=== PATIENT | female | born 1990 | race Hispanic/Latino ===

== ENCOUNTER 2017-03-01 15:33 | Emergency (ER) | payer BC ==
--- NOTE | 2017-03-01 16:58 | RAD ---
LEFT ANKLE FOUR VIEWS: History: Fall, left ankle injury. FINDINGS: Ankle mortise is intact. There is subtle cortical lucency involving the far lateral margin of the radha ar dome. No acute fracture or dislocation are apparent. IMPRESSION: 1. No acute osseous injury demonstrated. 2. Subtle cortical lucency at the far lateral margin of the talar dome. In the setting of chronic ank le pain, this could represent an osteochondral defect. In that case, please consider orthopedic evalu ation. POS: [id number]
== END 2017-03-01 16:21 | disposition home or self-care (01) ==
LOC: ERS 15:33
DX: S93.402A Sprain of unspecified ligament of left ankle, initial encounter (principal); J45.909 Unspecified asthma, uncomplicated; X50.1XXA Overexertion from prolonged static or awkward postures, initial encounter